=== PATIENT | female | born 2005 | race Caucasian/White ===

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

== ENCOUNTER 2023-01-23 10:12 | Emergency (ER) | payer BC ==
[~2023-01-23] VITALS: Ht 172.7 cm; Wt 108.4 kg
[2023-01-23 10:35] VITALS: TEMP 98.4
[2023-01-23 12:15] VITALS: BP 135/69
== END 2023-01-23 12:15 | disposition home or self-care (01) ==
LOC: ED 10:12
DX: U07.1 COVID-19 (principal)
CPT/HCPCS: 87502; 87635; 99283; U0003